=== PATIENT | female | born 1955 | race Caucasian/White ===

== ENCOUNTER → 2019-10-01 | Day surgery (SDC) | payer MEDICARE ==
[2019-09-28 10:54] LABS: BASOPHILS % 0.6 % (0.0-1.0); EOSINOPHILS # (AUTO) 0.1 (0.0-0.4); EOSINOPHILS % 2.3 % (0.0-6.0); HEMATOCRIT 39.7 % (34.2-44.1); LYMPHOCYTES # (AUTO) 1.9 (1.0-3.2); LYMPHOCYTES % 36.2 % (18.0-39.1); MEAN CORPUSCULAR HEMOGLOBIN 30.7 pg (28-32); MEAN CORPUSCULAR HGB CONC 32.7 g/dL (31-35); MEAN CORPUSCULAR VOLUME 93.9 fL (81-99); MONOCYTES # (AUTO) 0.7 (0.2-0.8); MONOCYTES % 12.4 % (4.4-11.3); NEUTROPHILS # (AUTO) 2.5 (2.1-6.9); NEUTROPHILS % 48.3 % (38.7-80.0); PLATELET COUNT 166 x10e3/uL (140-360); RED BLOOD COUNT 4.23 x10e6/uL (3.6-5.1); RED CELL DISTRIBUTION WIDTH 13.5 % (11.7-14.4)
[~2019-10-01] MED LIST: ACETAMINOPHEN325 M1 PO; BUSPIRONE HCL15 MG PO; CODIENE PO; CREON DR 12,001 EACH PO; FENTANYL CITRATE/PF 100MCG/2 ML INJ ONE; FOLIC ACID PO; LEXAPRO10 MG PO; LIDOCAINE HCL 2% LOCAL INJ 5 ML SDV VIAL INJ ONE; METOPROLOL SUCC50 MG PO; MIDAZOLAM HCL 2 MG/2 ML VIAL ONE; MULTI-VITAMIN1 EACH PO; PROPOFOL IV EMULSION 10 MG/ML 20 ML VIAL ONE; PROTONIX20 MG PO; REXULTI0.5 MG PO; TRIAMTERENE-HC1 EAC2 PO; TYLENOL PO; VITAMIN B-121000 MCG PO
[2019-10-01 13:10] VITALS: BP 133/89
== END | disposition home or self-care (01) ==
LOC: OR 09:54
PROVIDERS: ATTEND Internal Medicine
DX: K58.9 Irritable bowel syndrome, unspecified (principal); K21.9 Gastro-esophageal reflux disease without esophagitis; K63.89 Other specified diseases of intestine; K59.09 Other constipation; K64.0 First degree hemorrhoids; M35.1 Other overlap syndromes; K57.30 Diverticulosis of large intestine without perforation or abscess without bleeding; M79.7 Fibromyalgia; I10 Essential (primary) hypertension; I73.00 Raynaud's syndrome without gangrene; R00.1 Bradycardia, unspecified; F32.9 Major depressive disorder, single episode, unspecified; F41.9 Anxiety disorder, unspecified; Z01.810 Encounter for preprocedural cardiovascular examination; Z01.812 Encounter for preprocedural laboratory examination; Z11.59 Encounter for screening for other viral diseases
CPT/HCPCS: 36415; 45380; 85025; 87635; 93005; J2001; J2250; J2704; J3010